=== PATIENT | male | born 1945 | race Caucasian/White ===

== ENCOUNTER 2019-02-15 09:19 | Outpatient (CLI) | payer BC, MEDICARE ==
--- NOTE | 2019-02-15 10:56 | MRI ---
MRI Brain W WO Con: 02/15/2019 12:00 AM MRI IAC with and without contrast CLINICAL HISTORY: Sensorineural hearing loss. COMPARISON: None. FINDINGS: Extra axial spaces: Normal in size and morphology for the patient's age. Acute infarction: None. Ventricular system: Normal in size and morphology for the patient's age. Basal cisterns: Normal. Cerebral parenchyma: Minimal microvascular ischemic disease in cerebral white matter. Midline shift: None. Cerebellum: Normal. Brainstem: Normal. Paranasal sinuses:Clear MRI IAC with and without contrast reveals no pathologic enhancement or mass within the seventh/8th cr anial nerve complex, or at the CP angle cisterns. There is a 6 mm focus of signal alteration, localizing to marrow of the left temporal bone, medially, incompletely evaluated on the basis of this exam IMPRESSION: 1. No acute intracranial abnormality. 2. No acute abnormality of the seventh/8th cranial nerve complex bilaterally. 3. Nonspecific marrow signal alteration of the left temporal bone, incompletely assessed. Recommend d edicated temporal bone CT to further evaluate.
== END 2019-02-15 09:20 | disposition home or self-care (01) ==
LOC: SCSMRI 09:19
PROVIDERS: ATTEND Otolaryngology
DX: H90.3 Sensorineural hearing loss, bilateral (principal)
CPT/HCPCS: 70553; 82565

== ENCOUNTER 2019-02-25 08:39 | Outpatient (CLI) | payer MEDICARE, BC ==
--- NOTE | 2019-02-25 12:01 | CT ---
CT TEMPORAL BONES: HISTORY: Left-sided hearing loss. TECHNIQUE: High-resolution axial images are obtained with coronal and sagittal reconstructions. FINDINGS: CT images demonstrate the external auditory canals to be unremarkable. The middle ears, bilaterally, are unremarkable. No evidence of hypo-tympanal, epi-tympanal, or meso-tympanal abnormalities seen. The scutum is unremarkable bilaterally. Bilateral middle ear ossicles are intact. No evidence of m astoid or middle ear fluid seen. The right and left semicircular canals, as well as the horizontal portions of the facial nerves, are unremarkable. The cochlea, vestibule, and semicircular canals are unremarkable. The right and left vestibular aque ducts are of normal size. IMPRESSION: 1. Normal bilateral temporal bones CT. 2. Minimal bilateral ethmoid sinus mucosal thickening is seen. 3. In addition, there are small bilateral maxillary sinus mucus retention cysts. POS: [facility]
== END 2019-02-25 08:40 | disposition home or self-care (01) ==
LOC: SCSCT 08:39
PROVIDERS: ATTEND Otolaryngology
DX: H91.22 Sudden idiopathic hearing loss, left ear (principal); M27.40 Unspecified cyst of jaw; J34.1 Cyst and mucocele of nose and nasal sinus; J34.89 Other specified disorders of nose and nasal sinuses
CPT/HCPCS: 70480